=== PATIENT | male | born 1985 | race Caucasian/White ===

== ENCOUNTER → 2016-05-29 | Outpatient (CLI) | payer BC ==
--- NOTE | 2016-05-29 20:47 | REP ---
CHEST, PA AND LATERAL: 05/29/2016. Clinical history: Cough. Rectal carcinoma. No prior studies here. Findings: There is an indwelling port catheter via the right jugular route with tip in the SVC above the right atrium. The lung vitale are well inflated. There is no pleural effusion, lateral pleural thickening, apical scarring or pneumothorax. No dense consolidation, atelectasis or mass. A few cuffed bronchi in the perihilar regions are noted which might reflect reactive airway disease or bronchitis. No cardiomegaly, vascular redistribution or pulmonary edema. The aorta and mediastinal contours are normal. Bones intact. No free air under the diaphragm. Impression: 1. Some minor peribronchial thickening that may reflect reactive airway disease or bronchitis. 2. Indwelling port catheter via the right jugular route. No other finding. Signed by Scott Stein MD 05/30/2016 08:37 A
== END ==
LOC: M RAD 16:49
PROVIDERS: ATTEND Physician Assistant
DX: C20 Malignant neoplasm of rectum (principal)

== ENCOUNTER → 2017-01-13 | Outpatient (REF) | payer BC, MEDICAID | LOC: M LAB REF 08:12 | PROVIDERS: ATTEND Internal Medicine Medical Oncology | DX: C20 Malignant neoplasm of rectum (principal) ==

== ENCOUNTER → 2017-01-16 | Outpatient (CLI) | payer BC, MEDICAID ==
[~2017-01-16] MED LIST: GASTROGRAFIN SOLUTION 30ML (Q9963) As Ordered ONE; ISOVUE-370 76% 100ML VIAL (Q9967) As Ordered ONE
--- NOTE | 2017-01-16 16:27 | REP ---
Clinical: History of rectal cancer. Technique: Axial contrast enhanced images from the thoracic inlet to the upper abdomen using 100 ml Isovue 370 intravenous contrast material with coronal and sagittal re-formations. Findings: The bilateral lung vitale are well-aerated, symmetric, and clear. No pulmonary parenchymal consolidation, nodule or mass lesion is appreciated. No pleural effusion or pneumothorax. Tracheobronchial tree is patent. No adenopathy. The mediastinum demonstrates normal thoracic aorta and heart/pericardium. [id number] identified with tip in the SVC. Small amount of residual thymic tissue is nonspecific and benign-appearing. Surrounding musculoskeletal structures are intact without focal osseous abnormality upper abdomen demonstrates normal bilateral adrenal glands. Impression: Normal contrast enhanced chest CT. No acute mediastinal or pleuroparenchymal process. Specifically, no evidence for metastatic disease. Signed by Andres Cotton MD 01/16/2017 04:18 P
--- NOTE | 2017-01-16 16:27 | REP ---
Clinical: History of rectal carcinoma. Technique: Axial contrast enhanced images from the lung bases to the pubic symphysis using oral and 100 ml Isovue 370 intravenous contrast material with precontrast and delayed images of the abdomen as well as coronal and sagittal re-formations. Findings: Lung bases are clear. Visualized heart and pericardium normal. Liver, spleen, pancreas, gallbladder, bilateral adrenal glands and kidneys are normal. The enteric system is without obstruction or acute inflammatory process. Moderate fecal stasis suggested. Normal terminal ileum and appendix identified in the right lower quadrant. Evidence for prior partial resection and anastomoses at the rectosigmoid level. The adjacent fat within the rectal fossa appears clean. No obvious adjacent adenopathy or mass lesion is appreciated. Further evaluation the pelvis demonstrates normal bladder and age appropriate prostate/seminal vesicles. No ascites. No adenopathy. No mass lesion. Vasculature appears normal. Musculoskeletal structures are intact and without focal osseous abnormality. Impression: 1. Evidence for prior partial resection and anastomoses at the rectosigmoid level. No associated adenopathy, fluid, or mass lesion appreciated to suggest recurrence or metastatic disease. 2. No further acute abdominopelvic pathology appreciated. Signed by Andres Cotton MD 01/16/2017 04:18 P
== END ==
LOC: M RAD 14:30
PROVIDERS: ATTEND Internal Medicine Medical Oncology
DX: C20 Malignant neoplasm of rectum (principal)
CPT/HCPCS: 71260; 74178; Q9963; Q9967